=== PATIENT | female | born 1985 | race African-American/Black ===

== ENCOUNTER 2025-04-09 08:56 | Emergency (ER) | payer SELFPAY ==
[2025-04-09 09:36] LABS: Glucose, Urine (Dipstick) Negative (Negative); Leukocyte Trace (Negative); Protein, Urine (Dipstick) Trace mg/dL (Neg-Trace); Specific Gravity, Urine 1.025 (1.005-1.030)
[2025-04-09 09:40] LABS: Pregnancy Test - Urine (BHCG) Negative (Negative); Pregu Control Background? CLEAR/WHITE (CLR/WHITE); Pregu Control Bar Appear? YES (CONTROL BAR)
[2025-04-09 09:44] LABS: CAUTI Indications for Culture Dysuria,urgency,freq; RBC/HPF 0-3 HPF (0-3); WBC/HPF 0-3 HPF (0-3)
[2025-04-09 09:45] LABS: Bacteria/HPF Rare-Few HPF (None Seen); Urine Culture Reflex No No
[2025-04-09] MEDS ORDERED: Ketorolac Tromethamine 30 MG (1 mL) VIAL ONE (09:55)
[2025-04-09 10:30] LABS: Hematocrit 23.2 % (36.0-47.0); Hemoglobin 6.0 g/dL (12.0-16.0); Mean Corpuscular Hemoglobin 14.5 pg (27.0-31.0); Mean Corpuscular Volume 55.8 fl (78.0-98.0); Platelet Count 300 10x3/uL (130-400); Red Blood Cell (RBC) Count 4.21 mill/uL (4.20-5.40); White Blood Cell (WBC) Count 3.6 10x3/uL (4.8-10.8)
[2025-04-09 10:31] LABS: ALT (SGPT) 7 U/L (Less than 34); AST (SGOT) 10 U/L (11-34); Albumin 4.2 g/dL (3.1-4.5); Alkaline Phosphatase 62 U/L (40-110); Anion Gap 11 mmol/L (10-20); BUN (Urea Nitrogen) 9 mg/dL (7.0-18.7); Bilirubin, Total 0.7 mg/dL (0.3-1.2); Calc. Creatinine Clearance 0 mL/min (70-130); Calcium 8.7 mg/dL (7.8-10.44); Carbon Dioxide 27 mmol/L (22-29); Chloride 104 mmol/L (98-107); Globulin 2.6 g/dL (2.4-3.5); Glucose 105 mg/dL (70-105); Potassium 3.7 mmol/L (3.5-5.1); Sodium 138 mmol/L (136-145)
[2025-04-09 10:39] LABS: MDiff Complete? YES; Manual Diff?? YES
[2025-04-09 10:40] LABS: Anisocytosis MODERATE=16-30 cells (100X) (0-5/hpf); Microcytosis MODERATE=15-30 cells (100X) (0-5/hpf)
[2025-04-09 10:41] LABS: Platelet Adequacy Comment Appears Adequate
[2025-04-09] MEDS ORDERED: Fluconazole 100 MG TAB ONE (11:00)
[2025-04-09 11:47] LABS: INR-International Normal Ratio 1.2; Prothrombin Time 14.9 sec (12.0-14.7)
[2025-04-09 11:48] LABS: PTT 32.7 sec (22.9-36.1)
[2025-04-10 01:04] LABS: Chlam.trachomatis by PCR,Urine Not Detected (NotDetected); GC N.gonorrhoeae PCR,UrineVOID Not Detected (NotDetected)
== END 2025-04-09 15:07 | disposition home or self-care (01) ==
LOC: MADERS 08:56
DX: D64.9 Anemia, unspecified (principal); N93.9 Abnormal uterine and vaginal bleeding, unspecified; N76.0 Acute vaginitis; B96.89 Other specified bacterial agents as the cause of diseases classified elsewhere; B37.9 Candidiasis, unspecified; D25.9 Leiomyoma of uterus, unspecified; I10 Essential (primary) hypertension
CPT/HCPCS: 36430; 80053; 81001; 81025; 84443; 85025; 85610; 85730; 86850; 86900; 86901; 87428; 87480; 87491; 87510; 87591; 87660; 96372; 99283; J1885; J7030; P9016

== ENCOUNTER 2025-05-24 17:08 | Emergency (ER) | payer SELFPAY ==
[2025-05-24] MEDS ORDERED: Lidocaine 1% PF 5 ML VIAL ONE (18:43)
[2025-05-24] MEDS ORDERED: predniSONE 20 MG TAB ONE (18:43)
[2025-05-24] MEDS ORDERED: cefTRIAXone (ROCEPHIN) 1 GM VIAL ONE (18:44)
== END 2025-05-24 19:00 | disposition home or self-care (01) ==
LOC: MADERS 17:08
DX: H66.93 Otitis media, unspecified, bilateral (principal); I10 Essential (primary) hypertension; E66.9 Obesity, unspecified
CPT/HCPCS: 87428; 96372; 99283; J0696; J1885; J7512